=== PATIENT | female | born 1990 | race Caucasian/White ===

== ENCOUNTER 2019-01-11 19:30 | Inpatient (IN) ==
[2019-01-11 19:53] LABS: URINE SOURCE VOIDED
[2019-01-11 19:55] LABS: BILIRUBIN URINE NEGATIVE (NEGATIVE); BLOOD URINE NEGATIVE (NEGATIVE); CLARITY CLEAR (CLEAR); COLOR YELLOW; GLUCOSE URINE NEGATIVE (NEGATIVE); KETONE URINE NEGATIVE (NEGATIVE); LEUKOCYTES URINE NEGATIVE (NEGATIVE); NITRITE URINE NEGATIVE (NEGATIVE); PH URINE 6.5; PROTEIN URINE NEGATIVE (NEGATIVE); UROBILINOGEN URINE 0.2 EU/dL (0.2-1.0)
[2019-01-11 20:24] LABS: UR AMPHETAMINES QUAL NONE DETECTED (NONE DETECT); UR BARBITUATES QUAL NONE DETECTED (NONE DETECT); UR BENZODIAZEPIN QUAL NONE DETECTED (NONE DETECT); UR CANNABINOIDS QUAL NONE DETECTED (NONE DETECT); UR COCAINE QUAL NONE DETECTED (NONE DETECT); UR METHADONE QUAL NONE DETECTED (NONE DETECT); UR OPIATES QUAL NONE DETECTED (NONE DETECT); UR OXYCODONE QUAL NONE DETECTED (NONE DETECT); UR PCP QUAL NONE DETECTED (NONE DETECT)
[2019-01-11] MEDS: LR 1,000 ML IV SCH ×2 (21:21→22:17)
[2019-01-11] MEDS ORDERED: STADOL IV PRN (22:00)
[2019-01-11] MEDS ORDERED: PEPCID PO ONE (22:00)
[2019-01-11] MEDS ORDERED: ZOFRAN IV PRN (22:00)
[2019-01-11] MEDS ORDERED: SODIUM CHLORIDE 0.9% INJ SCH (22:00)
[2019-01-11] MEDS ORDERED: PITOCIN 30 UNITS/NS 30 UNIT/500 ML IV.SOLN IV SCH (22:00)
[2019-01-11] MEDS ORDERED: TYLENOL PO PRN (22:00)
[2019-01-11] MEDS ORDERED: LR 1,000 ML IV SCH (22:00)
[2019-01-11] MEDS ORDERED: REGLAN PO ONE (22:00)
[2019-01-11] MEDS ORDERED: PEPCID IV PRN (22:00)
[2019-01-11] MEDS ORDERED: PEPCID PO PRN (22:00)
[2019-01-11] MEDS ORDERED: KEFZOL 1 GM/D5W 1 GM/50 ML IVPB IV PRN (22:00)
[2019-01-11] MEDS ORDERED: MINERAL OIL PRN (22:02)
[2019-01-11] MEDS ORDERED: XYLOCAINE-MPF 1% INJ PRN (22:02)
[2019-01-11] MEDS: ROBITUSSIN PO PRN (22:09)
[2019-01-11 22:13] LABS: BASO# 0.01 X1000 (0.0-0.2); BASO% 0.1 % (0.0-0.8); EOS# 0.09 X1000 (0.0-0.7); EOS% 0.7 % (0.0-10.0); HEMOGLOBIN 10.2 g/dL (12.0-16.0); IMM GRAN% 0.8 % (0.0-0.5); LYMPH# 1.98 X1000 (1.2-3.4); LYMPH% 15.5 % (20.5-51.1); MCH 29.3 PG (27-31); MCHC 32.9 g/dL (33-37); MCV 89.1 FL (81-99); MONO# 0.79 X1000 (0.11-0.59); MONO% 6.2 % (1.7-9.3); MPV 10.6 FL (7.4-10.4); NEUT# 9.78 X1000 (1.4-6.5); NEUT% 76.7 % (42.2-75.2); PLT 264 X1000 (130-400); RBC 3.48 XMIL (4.2-5.4); RDW 13.1 % (11.5-14.5); WBC 12.75 X1000 (4.8-10.8)
[2019-01-11] MEDS ORDERED: REGLAN IV ONE (22:23)
[2019-01-11] MEDS ORDERED: BICITRA PO ONE (22:23)
[2019-01-11] MEDS ORDERED: FENTANYL IV ONE (22:45)
[2019-01-11] MEDS ORDERED: FENTANYL-BUPIV-NS 2 MCG-0.1% 250 ML EPIDURAL SCH (23:00)
--- NOTE | 2019-01-12 02:29 | OB/GYN PROGRESS NOTE ---
Progress Note OB - . OB Progress Note: Vital Signs - 24 hr 01/11/19 19:40 01/12/19 00:00 Temperature 98.6 F 97.8 F Pulse Rate 102 H 94 H Respiratory Rate 18 16 Blood Pressure 130/60 102/64 O2 Sat by Pulse Oximetry 97 95 01/11/19 20:21 Influenza Screen - Final Nasopharyngeal Laboratory Results - last 24 hr 01/11/19 01/11/19 01/11/19 19:30 19:30 21:35 WBC RBC Hgb Hct MCV MCH MCHC RDW Std Deviation Plt Count MPV Immature Gran % (Auto) Neut % (Auto) Lymph % (Auto) Garza % (Auto) Eos % (Auto) Baso % (Auto) Immature Gran # (Auto) Neut # (Auto) Lymph # (Auto) Garza # (Auto) Eos # (Auto) Baso # (Auto) Urine Source VOIDED Urine Color YELLOW Urine Clarity CLEAR Urine pH 6.5 Ur Specific Globe 1.020 Urine Protein NEGATIVE Urine Ketones NEGATIVE Urine Blood NEGATIVE Urine Nitrite NEGATIVE Urine Bilirubin NEGATIVE Urine Urobilinogen 0.2 Urine WBC NEGATIVE Urine Glucose NEGATIVE Urine Opiates Screen NONE DETECTED Ur Oxycodone Screen NONE DETECTED Ur Methadone, Qual NONE DETECTED Ur Barbiturates Screen NONE DETECTED Ur Phencyclidine Scrn NONE DETECTED Ur Amphetamines Screen NONE DETECTED U Benzodiazepines Scrn NONE DETECTED Urine Cocaine Screen NONE DETECTED U Cannabinoids Screen NONE DETECTED RPR NON-REACTIVE Blood Type Antibody Screen 01/11/19 01/11/19 21:35 21:35 WBC 12.75 H RBC 3.48 L Hgb 10.2 L Hct 31.0 L MCV 89.1 MCH 29.3 MCHC 32.9 L RDW Std Deviation 13.1 Plt Count 264 MPV 10.6 H Immature Gran % (Auto) 0.8 H Neut % (Auto) 76.7 H Lymph % (Auto) 15.5 L Garza % (Auto) 6.2 Eos % (Auto) 0.7 Baso % (Auto) 0.1 Immature Gran # (Auto) 0.10 H Neut # (Auto) 9.78 H Lymph # (Auto) 1.98 Garza # (Auto) 0.79 H Eos # (Auto) 0.09 Baso # (Auto) 0.01 Urine Source Urine Color Urine Clarity Urine pH Ur Specific Globe Urine Protein Urine Ketones Urine Blood Urine Nitrite Urine Bilirubin Urine Urobilinogen Urine WBC Urine Glucose Urine Opiates Screen Ur Oxycodone Screen Ur Methadone, Qual Ur Barbiturates Screen Ur Phencyclidine Scrn Ur Amphetamines Screen U Benzodiazepines Scrn Urine Cocaine Screen U Cannabinoids Screen RPR Blood Type O POSITIVE Antibody Screen NEGATIVE OB Progress FHT cat 1 epidural in /-2/vtx arom performed mec stained fluid iupc placed and AI started continue labor
[2019-01-12] MEDS ORDERED: LR 1,000 ML IV SCH (03:30)
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
[2019-01-12] MEDS ORDERED: ROBITUSSIN-DM PO PRN (08:51)
[2019-01-12] MEDS ORDERED: PERI MEDS (DERMOPLAST/NUPERCAINAL/TUCKS) MISC PRN (08:51)
[2019-01-12] MEDS ORDERED: M-M-R II VACCINE SUBQ ONE (08:51)
[2019-01-12] MEDS ORDERED: HYDROXYZINE IM PRN (08:51)
[2019-01-12] MEDS ORDERED: BENADRYL IV PRN (08:51)
[2019-01-12] MEDS ORDERED: MINERAL OIL PO PRN (08:51)
[2019-01-12] MEDS ORDERED: XYLOCAINE-MPF 1% INJ PRN (08:51)
[2019-01-12] MEDS ORDERED: ATARAX PO PRN (08:51)
[2019-01-12] MEDS ORDERED: AMBIEN PO PRN (08:51)
[2019-01-12] MEDS ORDERED: CYTOTEC PO PRN (08:51)
[2019-01-12] MEDS ORDERED: PITOCIN IM PRN (08:51)
[2019-01-12] MEDS ORDERED: BENADRYL PO PRN (08:51)
[2019-01-12] MEDS ORDERED: BOOSTRIX VACCINE IM ONE (08:51)
[2019-01-12] MEDS ORDERED: PITOCIN 20 UNITS/NS 20 UNITS/1,000 ML IV.SOLN IV SCH (09:00)
[2019-01-12] MEDS ORDERED: PITOCIN 30 UNITS/NS 30 UNIT/500 ML IV.SOLN IV SCH (09:00)
[2019-01-12] MEDS ORDERED: ZITHROMAX PO ONE (10:56)
[2019-01-12] MEDS ORDERED: DUONEB (A & A) INH ONE (11:09)
[2019-01-12] MEDS: MOTRIN PO PRN (19:15)
--- NOTE | 2019-01-12 20:09 | OPERATIVE NOTE ---
PROCEDURE DATE: 01/12/2019 PROCEDURE PERFORMED: Spontaneous vaginal delivery. SURGEON: Dr. Rhina Reyes. OIL DELIVERER: None. DESCRIPTION OF PROCEDURE: The patient delivered a viable female weighing 6 pounds 8 ounces with Apgars of 9 and 10 at 1 and 5 minutes respectively. The vertex was delivered spontaneously over intact perineum. A nuchal cord was identified and reduced. The anterior shoulder was delivered atraumatically by maternal expulsive efforts and assistance of downward traction. The posterior shoulder delivered with maternal expulsive efforts and upward traction. The remainder of the fetus delivered spontaneously and was placed on maternal abdomen and assessed by waiting alarm security or surveillance monitor staff. The cord was clamped and cut. Cord blood was obtained for blood gases, gas analysis to enhance uterine contraction. IV oxytocin was administered. The cervix, vagina and perineum were inspected for lacerations. No lacerations were noted. ESTIMATED BLOOD LOSS: 200 mL.
[2019-01-12] MEDS ORDERED: PERICOLACE PO SCH (21:00)
[2019-01-12] MEDS: ROBITUSSIN PO PRN (22:15)
[2019-01-13 06:20] LABS: BASO# 0.01 X1000 (0.0-0.2); BASO% 0.1 % (0.0-0.8); EOS# 0.13 X1000 (0.0-0.7); EOS% 1.2 % (0.0-10.0); HEMOGLOBIN 9.4 g/dL (12.0-16.0); IMM GRAN# 0.06 X1000 (0.0-0.04); IMM GRAN% 0.6 % (0.0-0.5); LYMPH# 2.92 X1000 (1.2-3.4); LYMPH% 26.8 % (20.5-51.1); MCH 29.3 PG (27-31); MCHC 32.4 g/dL (33-37); MCV 90.3 FL (81-99); MONO# 0.64 X1000 (0.11-0.59); MONO% 5.9 % (1.7-9.3); MPV 10.5 FL (7.4-10.4); NEUT# 7.14 X1000 (1.4-6.5); NEUT% 65.4 % (42.2-75.2); PLT 230 X1000 (130-400); RBC 3.21 XMIL (4.2-5.4); RDW 13.2 % (11.5-14.5)
[2019-01-13] MEDS: FERROUS SULFATE PO SCH (08:34)
[2019-01-13] MEDS: MOTRIN PO PRN ×2 (08:35→18:49)
[2019-01-13] MEDS: ZITHROMAX PO SCH (08:45)
[2019-01-13] MEDS ORDERED: PNEUMOVAX 23 IM ONE (18:15)
[2019-01-14] MEDS: ZITHROMAX PO SCH (07:36)
[2019-01-14] MEDS: FERROUS SULFATE PO SCH ×3 (07:37→07:39)
[2019-01-14 07:44] VITALS: BP 109/72
--- NOTE | 2019-01-15 08:24 | DISCHARGE SUMMARY ---
ADMISSION DATE: 01/12/2019 DISCHARGE DATE: 01/14/2019 ADMITTING DIAGNOSES: 1. Multiparity. 2. at 38 plus weeks' gestation. 3. Labor. 4. Tobacco abuse. 5. Normal spontaneous vaginal delivery. BRIEF HISTORY AND HOSPITAL COURSE: The patient is a 28-year-old, 5, para 3, now 4, who presented at 38-1/2 weeks' gestation in active phase of labor. She underwent an epidural anesthesia with amniotomy. Meconium was noted and an amnioinfusion was performed. Following that, she underwent normal spontaneous vaginal delivery. Please see separate delivery note. course was uncomplicated. day #1, she was afebrile with stable vital signs. She was ambulating, voiding, tolerating a regular diet. Hemoglobin 9.4 down from 10.2. On day #2, ambulating, voiding, tolerating a regular diet with vital signs stable and afebrile. She was discharged home in stable condition. She was asked to follow up in the office in 6 weeks. Call the office for pain, fever greater than 100.4, abnormal uterine bleeding. Maintain pelvic rest and a regular diet. Continue vitamins and iron. A prescription for Motrin provided.
== END 2019-01-14 09:55 | disposition home or self-care (01) | DRG 807 ==
LOC: OPLD 19:30 → LD 19:35
PROVIDERS: ADMIT Obstetrics & Gynecology; ATTEND Obstetrics & Gynecology